=== PATIENT | female | born 1945 | race Caucasian/White ===

== ENCOUNTER 2017-11-01 09:38 | Day surgery (SDC) | payer OTHER ==
[2017-11-01] MEDS ORDERED: TETRACAINE 0.5% OPHTH 1 DOSE AFFEYE ONE ×2 (09:45→13:48)
[2017-11-01] MEDS ORDERED: VIGAMOX 0.5% OPHTH 1 DOSE AFFEYE ONE ×5 (09:50→14:06)
[2017-11-01] MEDS ORDERED: NS 500 ML IV 500 ML IV ONE (09:52)
[2017-11-01] MEDS ORDERED: PROLENSA OPHTH 1 DOSE AFFEYE ONE (10:01)
[2017-11-01] MEDS ORDERED: ALPHAGAN-P OPHTH 1 DOSE AFFEYE ONE (10:02)
[2017-11-01] MEDS ORDERED: MYDRIACIL OPHTH 1 DOSE AFFEYE ONE ×3 (10:03→10:05)
[2017-11-01] MEDS ORDERED: CYCLOGYL 1% OPHTH 1 DOSE OP ONE ×3 (10:03→10:05)
[2017-11-01] MEDS ORDERED: AK-DILATE 2.5% OPHTH 1 DOSE OP ONE ×3 (10:03→10:05)
[2017-11-01] MEDS ORDERED: VERSED ONE (10:51)
[2017-11-01] MEDS ORDERED: BETADINE OPHTH SOLN 5% EACHEYE ONE (13:48)
[2017-11-01] MEDS ORDERED: BSS OPHTH (PLAIN) 500 ML with VANCOMYCIN HCL 500 MG VIAL 25 MG, ADRENALINE CHL INJ 1 MG IR ONE ×3 (13:53)
[2017-11-01] MEDS ORDERED: DUOVISC IO ONE (13:54)
[2017-11-01] MEDS ORDERED: ADRENALINE CHL INJ IM ONE (13:54)
[2017-11-01] MEDS ORDERED: ADRENALINE CHL INJ SC ONE (13:54)
[2017-11-01] MEDS ORDERED: XYLOCAINE-MPF 1% IJ ONE (13:54)
[2017-11-01 14:21] VITALS: BP 96/55
== END 2017-11-01 14:27 | disposition home or self-care (01) ==
LOC: SURG1 09:38
PROVIDERS: ATTEND Ophthalmology
PROC: 08DK3ZZ Extraction of Left Lens, Percutaneous Approach (ICD-10-PCS; principal; 2017-11-01 15:45)
PROC: 08RK3JZ Replacement of Left Lens with Synthetic Substitute, Percutaneous Approach (ICD-10-PCS; principal; 2017-11-01 15:45)
DX: H25.12 Age-related nuclear cataract, left eye (principal); H25.012 Cortical age-related cataract, left eye; H52.212 Irregular astigmatism, left eye
CPT/HCPCS: 99100; A4217; J0170; J2250; J3370

== ENCOUNTER 2017-11-29 07:11 | Day surgery (SDC) | payer OTHER ==
[2017-11-29] MEDS ORDERED: NS 500 ML IV 500 ML IV ONE (07:17)
[2017-11-29] MEDS ORDERED: TETRACAINE 0.5% OPHTH 1 DOSE AFFEYE ONE ×3 (07:23→08:56)
[2017-11-29] MEDS ORDERED: VIGAMOX 0.5% OPHTH 1 DOSE AFFEYE ONE ×4 (07:25→09:18)
[2017-11-29] MEDS ORDERED: PROLENSA OPHTH 1 DOSE AFFEYE ONE (07:36)
[2017-11-29] MEDS ORDERED: ALPHAGAN-P OPHTH 1 DOSE AFFEYE ONE (07:38)
[2017-11-29] MEDS ORDERED: AK-DILATE 2.5% OPHTH 1 DOSE OP ONE ×4 (07:40→07:47)
[2017-11-29] MEDS ORDERED: MYDRIACIL OPHTH 1 DOSE AFFEYE ONE ×4 (07:40→07:47)
[2017-11-29] MEDS ORDERED: CYCLOGYL 1% OPHTH 1 DOSE OP ONE ×4 (07:40→07:47)
[2017-11-29] MEDS ORDERED: BETADINE OPHTH SOLN 5% EACHEYE ONE (08:46)
[2017-11-29] MEDS ORDERED: XYLOCAINE-MPF 1% IJ ONE (09:09)
[2017-11-29] MEDS ORDERED: DUOVISC IO ONE (09:09)
[2017-11-29] MEDS ORDERED: BSS OPHTH (PLAIN) 500 ML with VANCOMYCIN HCL 500 MG VIAL 25 MG, ADRENALINE CHL INJ 1 MG IR ONE ×3 (09:09)
[2017-11-29] MEDS ORDERED: ADRENALINE CHL INJ SC ONE (09:09)
[2017-11-29 09:39] VITALS: BP 125/65
[2017-11-29] MEDS ORDERED: DIPRIVAN VIAL ONE (15:35)
== END 2017-11-29 09:40 | disposition home or self-care (01) ==
LOC: SURG1 07:11
PROVIDERS: ATTEND Ophthalmology
PROC: 08RJ3JZ Replacement of Right Lens with Synthetic Substitute, Percutaneous Approach (ICD-10-PCS; principal; 2017-11-29 06:00)
PROC: 08DJ3ZZ Extraction of Right Lens, Percutaneous Approach (ICD-10-PCS; principal; 2017-11-29 06:00)
DX: H25.11 Age-related nuclear cataract, right eye (principal); H25.011 Cortical age-related cataract, right eye; H52.211 Irregular astigmatism, right eye
CPT/HCPCS: 99100; A4217; J0170; J3370; J3490